=== PATIENT | female | born 1975 | race Caucasian/White ===

== ENCOUNTER 2024-04-04 13:43 | Emergency (ER) | payer OTHER ==
[~2024-04-04] VITALS: Ht 165.1 cm; Wt 53.4 kg
[2024-04-04 15:36] VITALS: BP 129/74; TEMP 97; O2SAT 97
[2024-04-04] MEDS ORDERED: METH-1164 PO (17:12)
[2024-04-04] MEDS ORDERED: PRED20TA PO (17:12)
== END 2024-04-04 17:16 | disposition home or self-care (01) ==
LOC: M ED 13:43
DX: M50.30 Other cervical disc degeneration, unspecified cervical region (principal); M51.360 Other intervertebral disc degeneration, lumbar region with discogenic back pain only; I10 Essential (primary) hypertension; F17.200 Nicotine dependence, unspecified, uncomplicated; F12.10 Cannabis abuse, uncomplicated; Z79.52 Long term (current) use of systemic steroids; Z79.899 Other long term (current) drug therapy

== ENCOUNTER → 2024-04-11 | Outpatient (CLI) | payer OTHER ==
[~2024-04-11] MED LIST: METH-1164 PO; PRED20TA PO
== END ==
LOC: M SOG 07:51
PROVIDERS: ATTEND Physician Assistant
DX: M54.2 Cervicalgia (principal); M25.511 Pain in right shoulder

== ENCOUNTER → 2024-05-12 | Outpatient (CLI) | payer OTHER | LOC: M PLARAD 15:15 | PROVIDERS: ATTEND Physician Assistant | DX: M50.122 Cervical disc disorder at C5-C6 level with radiculopathy (principal); M50.123 Cervical disc disorder at C6-C7 level with radiculopathy; R20.2 Paresthesia of skin; M25.78 Osteophyte, vertebrae ==